=== PATIENT | female | born 1995 | race Caucasian/White ===

== ENCOUNTER 2020-01-19 04:36 | Emergency (ER) | payer SELFPAY ==
[~2020-01-19] VITALS: Ht 175.3 cm; Wt 134.1 kg
[2020-01-19 05:22] VITALS: BP 146/85; PULSE 100; TEMP 99.3
[2020-01-19] MEDS ORDERED: ZITHROMAX500 M2 PO (05:31)
[2020-01-19] MEDS ORDERED: TESSALON PERLE200 MG PO (05:31)
== END 2020-01-19 06:12 | disposition home or self-care (01) ==
LOC: COL.ER 04:36
DX: J06.9 Acute upper respiratory infection, unspecified (principal); E11.9 Type 2 diabetes mellitus without complications; F17.210 Nicotine dependence, cigarettes, uncomplicated; Z79.84 Long term (current) use of oral hypoglycemic drugs

== ENCOUNTER 2023-07-23 21:02 | Observation (INO) | payer SELFPAY ==
[~2023-07-23] VITALS: Ht 175.3 cm; Wt 136.0 kg
[~2023-07-23 21:02] MED LIST: TESSALON PERLE200 MG PO; ZITHROMAX500 M2 PO
[2023-07-23 21:40] LABS: BASO # 0.1 K/mm3 (0.0-0.2); BASO % 0.8 % (0.0-2.0); EOS # 0.6 K/mm3 (0.0-0.7); EOS % 5.1 % (0.0-4.0); GRAN # 7.7 K/mm3 (1.4-6.5); GRAN % 64.9 % (42.2-75.2); HEMATOCRIT 42.5 % (37.0-47.0); HEMOGLOBIN 14.1 g/dl (12.5-16.0); LYMPH # 2.7 K/mm3 (1.2-3.4); LYMPH % 22.6 % (20.0-51.0); MEAN CELL VOLUME 85 fl (80.0-100.0); MEAN CORPUSCULAR HEMOGLOBIN 28 pg (27-31); MEAN CORPUSCULAR HGB CONC 33 g/dl (33.0-37.0); MEAN PLATELET VOLUME 11.4 fl (7.4-10.4); MONO # 0.7 K/mm3 (0.1-0.6); PLATELET COUNT 309 K/mm3 (130-400); RED BLOOD COUNT 5.01 M/mm3 (4.10-5.30); REDCELL DISTRIBUTION WIDTH-CV 12.4 % (11.5-14.5)
[2023-07-23 21:55] LABS: ACETAMINOPHEN < 7.0 ug/mL (10-30); ALANINE AMINOTRANSFERASE 28 U/L (0-55); ALBUMIN 3.8 gm/dL (3.5-5.0); ALCOHOL(ethanol),MEDICAL < 10 mg/dL (0-10); ALKALINE PHOSPHATASE 43 U/L (40-150); ANION GAP 10 mmol/L (7-16); AST,SGOT 17 U/L (5-34); BILIRUBIN,TOTAL 0.3 mg/dL (0.2-1.2); BLOOD UREA NITROGEN 12 mg/dL (7-19); CALCIUM 9.2 mg/dL (8.4-10.2); CARBON DIOXIDE 18 mmol/L (22-29); CHLORIDE 109 mmol/L (98-107); GLUCOSE 354 mg/dL (70-99); POTASSIUM 3.8 mmol/L (3.5-4.5); SALICYLATE < 5.0 mg/dL (15.0-30.0); SODIUM 137 mmol/L (136-145); TOTAL PROTEIN 7.6 gm/dL (6.2-8.1)
[2023-07-23] MEDS ORDERED: GLUCOTROL10 MG PO ×2 (22:08→22:55)
[2023-07-23] MEDS ORDERED: LEXAPRO 10MG10 MG PO ×2 (22:11→22:55)
[2023-07-23] MEDS ORDERED: PROAIR HFA0.09 MG/AC IH (22:11)
[2023-07-23] MEDS ORDERED: LEVEMIR FLEX100 U/ML SQ ×2 (22:13→22:56)
[2023-07-23] MEDS ORDERED: JANUVIA 100MG100 MG PO ×2 (22:14→22:55)
[2023-07-23] MEDS ORDERED: VICTOZA6 MG/ML SQ ×2 (22:14→22:56)
[2023-07-23] MEDS ORDERED: EUTHYROX25 MCG PO (22:15)
[2023-07-23 22:45] LABS: COLLECTION METHOD CLEAN CATCH
[2023-07-23 22:52] LABS: URINE APPEARANCE Hazy (CLEAR/HAZY); URINE COLOR Yellow (YELLOW)
[2023-07-23 22:53] LABS: URINE BLOOD Negative (NEGATIVE); URINE GLUCOSE 3+ (NEGATIVE); URINE KETONE TRACE (NEGATIVE); URINE NITRATE Negative (NEGATIVE); URINE PROTEIN(semi-quant) Negative (NEGATIVE)
[2023-07-23] MEDS ORDERED: SYNTHROID 0.0.025 MG PO (22:55)
[2023-07-23 22:59] LABS: URINE RBC 0-2 /hpf (0-2)
[2023-07-23 23:00] LABS: MUCOUS Present (NOT PRESENT); URINE BACTERIA Moderate /hpf (NONE SEEN)
[2023-07-23 23:03] LABS: TRICYCLIC ANTIDEPRESS URINE NEGATIVE (NEGATIVE)
--- NOTE | 2023-07-23 23:40 | NUR ---
PATIENT ADMITTED TO ROOM 313 FROM ED. VS ARE WNL AND BG IS 266. AFFECT IS NORMAL AND PATIENT HAVING PLEASANT AND APPROPRIATE CONVERSATION. NO SIGNS OF SUICIDAL BEHAVIORS CURRENTLY. TELE IS NS. PATIENT DISCLOSED THAT SHE DRANK SALT WATER IN ORDER TO THROW-UP PILLS-NA+ LEVEL WNL. ORIENTED TO ROOM, SUCIDAL PRECAUTIONS IN PLACE AND CALL LIGHT WITHIN REACH.
[2023-07-23 23:45] VITALS: BP 120/67; PULSE 77; TEMP 98.3
[2023-07-24] VITALS (23 sets, daily range): BP systolic 110–144; BP diastolic 55–86; PULSE 55–86; TEMP 98–98.5
--- NOTE | 2023-07-24 02:02 | NUR ---
ASSISSTED PATIENT TO BATHROOM. CARLOS ENRIQUE REMAINS PLEASANT AND SHOWS NO CLINICAL SIGNS OF SUICIDALITY. HER BLOOD GLUCOSE HAS INCREASED FROM 266 TO 276 AFTER CONSUMING SANDWHICH BOX. SUICIDE PRECAUTIONS IN PLACE AND CALL LIGHT WITHIN REACH.
--- NOTE | 2023-07-24 06:18 | NUR ---
CALL PLACED TO HOSPITALIST. PATIENT STATED WHILE AT HOME, MADE A SALT WATER SOLUTION TO DRINK IN ORDER TO INDUCE VOMIT AFTER OVER INGESTING GLIPIZIDE. LABS ARE WNL. TORB TO NOT ALLOW COPIOUS FREE WATER CONSUMPTION GIVEN.
--- NOTE | 2023-07-24 06:27 | NUR ---
END OF SHIFT AND CARLOS ENRIQUE "RENAE" HAS HAD NO EPISODES OF HYPOGLYCEMIA OR SUICIDALITY. VS AND TELE REMAIN WNL. PRECAUTIONS IN PLACE.
[2023-07-24 07:53] LABS: BASO # 0.1 K/mm3 (0.0-0.2); BASO % 0.8 % (0.0-2.0); EOS # 0.5 K/mm3 (0.0-0.7); EOS % 4.9 % (0.0-4.0); HEMATOCRIT 39.1 % (37.0-47.0); HEMOGLOBIN 12.5 g/dl (12.5-16.0); LYMPH # 2.8 K/mm3 (1.2-3.4); LYMPH % 27.7 % (20.0-51.0); MEAN CELL VOLUME 87 fl (80.0-100.0); MEAN CORPUSCULAR HEMOGLOBIN 28 pg (27-31); MEAN CORPUSCULAR HGB CONC 32 g/dl (33.0-37.0); MEAN PLATELET VOLUME 11.5 fl (7.4-10.4); MONO # 0.7 K/mm3 (0.1-0.6); MONO % 7.2 % (1.7-9.3); PLATELET COUNT 274 K/mm3 (130-400); REDCELL DISTRIBUTION WIDTH-CV 12.7 % (11.5-14.5)
[2023-07-24 08:17] LABS: CALCIUM 8.6 mg/dL (8.4-10.2); CREATININE, serum 0.65 mg/dL (0.57-1.11); POTASSIUM 3.7 mmol/L (3.5-4.5)
--- NOTE | 2023-07-24 10:48 | NUR ---
[employer] called for update on pt. [employer] stated she is cleared with them and no need for further monitoring on their end.
--- NOTE | 2023-07-24 11:20 | NUR ---
[facility] Screen set up and Zoom call set up at this time.
--- NOTE | 2023-07-24 11:26 | NUR ---
After apoloniae screen laya approved pt to be discharged home with safty plan. Update to Dr. Forrester for safty plan home
--- NOTE | 2023-07-24 12:18 | NUR ---
1145 ALL BELONGINGS RETURNED TO PT ROOM AT THIS TIME. waiting safty plan then will dc pt
--- NOTE | 2023-07-24 12:38 | NUR ---
PT IV SITE BOTHERING PT, IV SITE DC'D AT THIS TIME.
--- NOTE | 2023-07-24 13:29 | NUR ---
SAFTEY PLAN RECIEVED AND SIGNED BY PT. COPY MADE FOR PT TO TAKE HOME. PT EDUCATION GIVEN TO PT AT THIS TIME TO REVIEW.
--- NOTE | 2023-07-24 14:20 | NUR ---
SW met with patient to complete intake. Patient shared that she currently lives in [place] with partner. Patient informed SW that she has been in/out of therapy for past few years and is working on getting re-establised with care with [facility]. SW indicated a very stressful past few months, denied any safety concerns in the home with partner. Patient PCP is Janina Soto APRN with [facility] and pharmacy of choice is [facility]. NOK is mother Lili George [phone]. Patient stated that she is independent with ADL's and only DME's reported is glucometer. Patient shared that she is reapplying for [facility], and pending application. No DPOA. Patient is set to complete screening with [facility] prior to discharge. SW provided patient additional community resoures. D/C plan: (pending) further medical recommendations at this time.
--- NOTE | 2023-07-24 14:32 | NUR ---
PATIENT ESCORTED OFF OF UNIT BY VIA [facility]
== END 2023-07-24 14:32 | disposition home or self-care (01) ==
LOC: COL.ER 21:02 → MEDICAL 22:25
PROVIDERS: Nurse Practitioner; Nurse Practitioner Family; ADMIT Internal Medicine
DX: T38.3X2A Poisoning by insulin and oral hypoglycemic [antidiabetic] drugs, intentional self-harm, initial encounter (principal); R45.851 Suicidal ideations; E11.9 Type 2 diabetes mellitus without complications; Z79.4 Long term (current) use of insulin; Z79.85 Long-term (current) use of injectable non-insulin antidiabetic drugs; Z79.84 Long term (current) use of oral hypoglycemic drugs; E03.9 Hypothyroidism, unspecified; J45.909 Unspecified asthma, uncomplicated; Z79.890 Hormone replacement therapy; E66.01 Morbid (severe) obesity due to excess calories; Z68.41 Body mass index [BMI] 40.0-44.9, adult
CPT/HCPCS: G0378; J7030